=== PATIENT | female | born 1960 | race Caucasian/White ===

== ENCOUNTER 2016-08-22 10:03 | Emergency (ER) | payer BC, OTHER ==
[2016-08-22 10:11] VITALS: TEMP 98
--- NOTE | 2016-08-22 10:14 | CPEKG ---
Heart Rate: 45 RR Interval: 1333 P-R Interval: 148 QRSD Interval: 90 QT Interval: 492 QTC Interval: 426 P [place]: 63 QRS [place]: 77 T Wave [place]: 76 EKG Severity - OTHERWISE NORMAL ECG - EKG Impression: SINUS BRADYCARDIA Electronically Signed By: Edwin Christian 24-Aug-2016 11:21:06
[2016-08-22] MEDS ORDERED: ASPIRIN 81 MG CHEWABLE TAB PO ONE (10:19)
[2016-08-22 10:25] LABS: ADD DIFF? NO; ADD MORPH? NO; ADD SCAN? NO; ATYPICAL LYMPHOCYTE FLAG 10 (0-99); FRAGMENT RBC FLAG 0 (0-99); HEMATOCRIT 41.7 % (38.0-47.0); HEMOGLOBIN 14.5 g/dL (12.6-16.3); LEFT SHIFT FLG 0 (0-99); LIPEMIA HEMOLYSIS FLAG 90 (0-99); MEAN CELL HEMOGLOBIN 32.7 pg (27.9-34.1); MEAN CELL HEMOGLOBIN CONCENTR. 34.8 g/dL (32.4-36.7); MEAN CELL VOLUME 93.9 fL (81.5-99.8); MEAN PLATELET VOLUME 10.4 fL (8.7-11.7); PLATELET CLUMPS FLAG 0 (0-99); PLATELET COUNT 137 10^3/uL (150-400); RED BLOOD CELL COUNT 4.44 10^6/uL (4.18-5.33); RED CELL DISTRIBUTION WIDTH 12.9 % (11.5-15.2)
[2016-08-22 10:41] LABS: ANION GAP 13 mEq/L (8-16); CALCIUM 9.5 mg/dL (8.5-10.4); CARBON DIOXIDE 26 mEq/l (22-31); CHLORIDE 100 mEq/L (97-110); GLOMERULAR FILTRATION RATE 57; GLUCOSE 105 mg/dL (70-100); POTASSIUM 4.9 mEq/L (3.5-5.2); SODIUM 139 mEq/L (134-144)
[2016-08-22 10:44] LABS: ALBUMIN 3.9 g/dL (3.5-5.0); BILIRUBIN,TOTAL 0.7 mg/dL (0.1-1.4); BILIRUBIN-UNCONJUGATED 0.7 mg/dL (0.0-1.1); TOTAL PROTEIN 6.4 g/dL (6.3-8.2)
--- NOTE | 2016-08-22 10:45 | UCPHY ---
H & P Patient Type: Established Chief Complaint Nursing Narrative: sitting @ [employer] ~ 09 when she had sudden mid sternal CP/SOB - then dizzyness with clammy hands- drove here. denies prior episodes Time Seen by Provider: 08/22/16 10:07 HPI/ROS: CHIEF COMPLAINT: Chest pressure HISTORY OF PRESENT ILLNESS: 55-year-old female reports she was sitting in [employer] today when she developed substernal chest pressure around 9am. Discomfort was described as a severe pressure. She felt lightheaded. Her hands were cold and clammy. She got up, moved about, experienced no relief. She felt dizzy and lightheaded. After symptoms had been present for 45 minutes without any improvement the patient and her elected to come to the urgent care. On arrival to urgent care patient reports the discomfort seemed to gradually subside. She has never had similar symptoms. No history of GERD or reflux. Pain was not described as burning. No cough or upper respiratory infection symptoms. No significant complaints of shortness of breath. Patient was otherwise well prior to this event. She was biking yesterday without any difficulty. REVIEW OF SYSTEMS: Aside from elements discussed in the HPI, a comprehensive 10-point review of systems was reviewed and is negative. PAST MEDICAL HISTORY: Hypothyroidism, jay jay menopausal. SOCIAL HISTORY: Nonsmoker. Here with her . VITAL SIGNS: see nurse's notes. GENERAL: Well-developed, well-nourished, in mild distress. She just reports "not feeling well". Patient rates the discomfort as 0/10, currently, 6/10 at worse. HEENT: Atraumatic. Eyes: No injection or icterus. Oropharynx: No erythema , no injection, no swelling. Neck: No JVD, no bruits, supple with no adenopathy. LUNGS: Clear to auscultation bilaterally, no wheezes, rhonchi or rales. CARDIAC: Regular rate and rhythm, no murmurs, no rubs, no gallops. ABDOMEN: Soft, nontender, nondistended, bowel sounds normal. BACK: No CVA tenderness. EXTREMITIES: No trauma. No clubbing, cyanosis or edema. Range of motion is normal throughout. NEURO: Alert and oriented , grossly nonfocal. SKIN: No diaphoresis, warm and dry, no rash. - Personal History Current Tetanus Diphtheria and Acellular Pertussis (TDAP): Yes - Medical/Surgical History Hx Asthma: No Hx Chronic Respiratory Disease: No Hx Diabetes: No Hx Cardiac Disease: No Hx Renal Disease: No Hx Cirrhosis: No Hx Alcoholism: No Hx HIV/AIDS: No Hx Splenectomy or Spleen Trauma: No Other PMH: C SECTION,KNEE, - Family History Significant Family History: No pertinent family hx. No: Heart disease, Diabetes , Hypertension, Vascular disease - Social History Smoking Status: Never smoked Constitutional: Initial Vital Signs Temperature (C) 36.6 C 08/22/16 10:10 Heart Rate 54 L 08/22/16 10:10 Respiratory Rate 18 08/22/16 10:10 Blood Pressure 124/41 H 08/22/16 10:10 O2 Sat (%) 97 08/22/16 10:10 O2 Delivery Mode Room Air Allergies/Adverse Reactions: amoxicillin trihydrate [From Augmentin] Allergy (Verified 03/25/14 10:42) potassium clavula *RETIRED-01/10/12 [From Augmentin] Allergy (Verified 03/25/14 10:42) Home Medications: Medication Instructions Recorded FLUOXETINE HCL 05/02/11 Ibuprofen [Motrin (*)] 600 mg PO Q6PRN PRN #20 tab 05/02/11 LEVOTHYROXINE SODIUM 05/02/11 Medical Decision Making - Diagnostics EKG Interpretation: 12-LEAD EKG: Please see the full report in [facility]. My interpretation: Sinus bradycardia, no ST or T-wave changes Imaging Results: Imaging Impressions Chest X-Ray 08/22/16 10:28 Impression: Normal chest x-ray. ED Course/Re-evaluation: 55-year-old female with an abrupt onset of chest pressure associated with lightheadedness and dizziness. Discomfort was present for an hour. While in the emergency department she again reported not feeling well was is noted to become bradycardic to 40s on the monitor. Evaluation including electrolytes, troponin, liver function tests, and lipase were all normal. Patient had normal chest x-ray. She told me she had a brief episode of feeling lightheaded and dizzy when she was at radiology obtaining her chest x-ray. I held a long discussion with the patient and her and advised them that my recommendation was the be transferred to [facility] for admission to chest pain obvious trauma for serial troponins, ongoing monitoring , and further evaluation. Patient tells me she is feeling fine now and is quite reluctant to be admitted. She and her asked if a 4 hour troponin could be obtained from the emergency department. Patient rested comfortably and a 4 hour troponin was obtained. This was negative. Repeat EKG was performed and demonstrates no changes other than flattening of aVL. Course was discussed with Dr. Hector Gonzalez. Patient is a [facility] patient. Arrangements were made for the patient to have a stress test performed tomorrow at 8:15 a.m.. Prior to discharge again stressed to the patient that the safest course of action was admission and ongoing observation while awaiting her stress test. She and her understand that the diagnosis of acute coronary syndrome has not been fully excluded. They report that they are comfortable with the plan. They would prefer to be discharged home. The understand that they should return to the emergency department immediately if she develops recurrent chest discomfort has other concerning symptoms. I believe the patient and her are competent decision makers and understood the risks associated with this alternative plan. Differential Diagnosis: After history and physical examination, the differential for chest pain was considered, including but not limited to, myocardial ischemia, acute coronary syndrome, pulmonary embolus, chest wall pain, pleural inflammation and pulmonary infectious causes. - Data Points Laboratory Results: Laboratory Results 08/22/16 10:19 08/22/16 10:19 08/22/16 08/22/16 08/22/16 14:05 13:23 10:19 WBC RBC Hgb Hct MCV MCH MCHC RDW Plt Count MPV Neut % (Auto) Lymph % (Auto) [place] % (Auto) Eos % (Auto) Baso % (Auto) Nucleat RBC Rel Count Absolute Neuts (auto) Absolute Lymphs (auto) Absolute Monos (auto) Absolute Eos (auto) Absolute Basos (auto) Absolute Nucleated RBC Immature Gran % Immature Gran # Sodium Potassium Chloride Carbon Dioxide Anion Gap BUN Creatinine Estimated GFR Glucose Calcium Total Bilirubin 0.7 mg/dL mg/dL (0.1-1.4) Conjugated Bilirubin 0.0 mg/dL mg/dL (0.0-0.5) Unconjugated Bilirubin 0.7 mg/dL mg/dL (0.0-1.1) AST 34 IU/L IU/L (14-46) ALT 39 IU/L IU/L (9-52) Alkaline Phosphatase 55 IU/L IU/L (38-126) Troponin I < 0.012 ng/mL ng/mL (0-0.034) Total Protein 6.4 g/dL g/dL (6.3-8.2) Albumin 3.9 g/dL g/dL (3.5-5.0) Lipase 87.0 IU/L IU/L (23-300) TSH 1.470 uIU/mL uIU/mL (0.465-4.680) 08/22/16 08/22/16 10:19 10:19 WBC 6.18 10^3/uL 10^3/uL (3.80-9.50) RBC 4.44 10^6/uL 10^6/uL (4.18-5.33) Hgb 14.5 g/dL g/dL (12.6-16.3) Hct 41.7 % % (38.0-47.0) MCV 93.9 fL fL (81.5-99.8) MCH 32.7 pg pg (27.9-34.1) MCHC 34.8 g/dL g/dL (32.4-36.7) RDW 12.9 % % (11.5-15.2) Plt Count 137 10^3/uL L 10^3/uL (150-400) MPV 10.4 fL fL (8.7-11.7) Neut % (Auto) 24.8 % L % (39.3-74.2) Lymph % (Auto) 67.6 % H % (15.0-45.0) [place] % (Auto) 6.0 % % (4.5-13.0) Eos % (Auto) 1.0 % % (0.6-7.6) Baso % (Auto) 0.6 % % (0.3-1.7) Nucleat RBC Rel Count 0.0 % % (0.0-0.2) Absolute Neuts (auto) 1.53 10^3/uL L 10^3/uL (1.70-6.50) Absolute Lymphs (auto) 4.18 10^3/uL H 10^3/uL (1.00-3.00) Absolute Monos (auto) 0.37 10^3/uL 10^3/uL (0.30-0.80) Absolute Eos (auto) 0.06 10^3/uL 10^3/uL (0.03-0.40) Absolute Basos (auto) 0.04 10^3/uL 10^3/uL (0.02-0.10) Absolute Nucleated RBC 0.00 10^3/uL 10^3/uL (0-0.01) Immature Gran % 0.0 % % (0.0-1.1) Immature Gran # 0.00 10^3/uL 10^3/uL (0.00-0.10) Sodium 139 mEq/L mEq/L (134-144) Potassium 4.9 mEq/L mEq/L (3.5-5.2) Chloride 100 mEq/L mEq/L (97-110) Carbon Dioxide 26 mEq/l mEq/l (22-31) Anion Gap 13 mEq/L mEq/L (8-16) BUN 18 mg/dL mg/dL (7-23) Creatinine 1.0 mg/dL mg/dL (0.6-1.0) Estimated GFR 57 Glucose 105 mg/dL H mg/dL (70-100) Calcium 9.5 mg/dL mg/dL (8.5-10.4) Total Bilirubin Conjugated Bilirubin Unconjugated Bilirubin AST ALT Alkaline Phosphatase Troponin I < 0.012 ng/mL ng/mL (0-0.034) Total Protein Albumin Lipase TSH Medications Given: Discontinued Medications Aspirin (Aspirin) 324 mg PO EDNOW ONE Stop: 08/22/16 10:20 Last Admin: 08/22/16 10:20 Dose: 324 mg Sodium Chloride (Ns) 1,000 mls @ 3,000 mls/hr IV ONCE ONE Stop: 08/22/16 13:38 Last Admin: 08/22/16 16:08 Dose: Not Given Departure - Departure Disposition: Home, Routine, Self-Care Clinical Impression: Rule out acute coronary syndrome Chest pain Qualifiers: Chest pain type: unspecified Qualified Code(s): R07.9 - Chest pain, unspecified Condition: Good Instructions: Chest Pain (ED), Acute Coronary Syndrome (ED) Additional Instructions: Your case has been discussed with Dr. Hector Gonzalez. He agrees that you need an urgent stress test. Your stress test scheduled for 8:15 tomorrow morning. Please be at Dr. Gonzalez's cardiology office no later that 8:15. Do not eat or drink anything for 2 hrs before your appointment. Do not have any caffeine for 12 hours prior to your appointment. If you developed recurrent chest discomfort please proceed directly to [facility] emergency department or call 911. Referrals: NONE *PRIMARY CARE P,. [Primary Care Provider] - As per Instructions Rikki Gonzalez MD [Medical Doctor] - As per Instructions (Arrived no later than 8 :15 a.m. for your appointment.) - PQRS PQRS Measurement: Not applicable
[2016-08-22 10:54] LABS: TROPONIN I < 0.012 ng/mL (0-0.034)
[2016-08-22] MEDS ORDERED: ONDANSETRON DISINTEGRATING 4 MG TAB PO PRN (13:19)
[2016-08-22] MEDS ORDERED: NS 1,000 ML IV ONE (13:19)
[2016-08-22] MEDS ORDERED: ONDANSETRON 4 MG/2 ML VIAL IVP PRN (13:19)
[2016-08-22] MEDS ORDERED: ACETAMINOPHEN 325 MG TAB PO PRN (13:19)
--- NOTE | 2016-08-22 15:20 | CPEKG ---
Heart Rate: 59 RR Interval: 1017 P-R Interval: 172 QRSD Interval: 76 QT Interval: 436 QTC Interval: 432 P [place]: 57 QRS [place]: 56 T Wave [place]: 58 EKG Severity - NORMAL ECG - EKG Impression: SINUS RHYTHM Electronically Signed By: Edwin Christian 24-Aug-2016 11:21:03
[2016-08-22 16:16] VITALS: BP 106/50; PULSE 66; RESP 14; O2SAT 94
== END 2016-08-22 16:00 | disposition home or self-care (01) ==
LOC: CED 10:03 → UNDOADMOB 11:51 → CEDHOLD 11:51 → CED 16:00
DX: R07.89 Other chest pain (principal); R42 Dizziness and giddiness; R00.1 Bradycardia, unspecified; E03.9 Hypothyroidism, unspecified
CPT/HCPCS: 71020-PO; 80048-PO; 80076-PO; 83690-PO; 84443-PO; 84484-PO; 85025-PO; 93010-PO; 99215-PO; G0463-PO

== ENCOUNTER → 2016-09-21 | Outpatient (CLI) | payer OTHER | LOC: FIMAGING 07:50 | PROVIDERS: ATTEND Physician Assistant | DX: Z12.31 Encounter for screening mammogram for malignant neoplasm of breast (principal); Z80.3 Family history of malignant neoplasm of breast | CPT/HCPCS: G0202 ==